=== PATIENT | male | born 1960 | race Caucasian/White ===

== ENCOUNTER 2016-10-15 12:21 | Day surgery (SDC) | payer OTHER ==
[~2016-10-15] VITALS: Ht 175.3 cm; Wt 106.6 kg
[~2016-10-15 12:21] MED LIST: ALLOPURINOL300 MG PO; AMLODIPINE BESYL5 MG PO; AUGMENTIN875 MG PO; BREO ELLIPTA I1 EACH IH; LIPITOR40 MG PO; METFORMIN HCL500 MG PO; NEURONTIN100 MG PO; OMEPRAZOLE20 M2 PO; PRAVASTATIN SOD40 MG PO; SINGULAIR10 MG PO; TOPROL XL50 MG PO; TRAMADOL HCL50 MG PO; VALSARTAN-HCTZ1 EAC3 PO; VITAMIN B-2100 MG PO; ZYLOPRIM300 MG PO
[2016-10-15 13:13] LABS: POINT-OF-CARE METER ID UU14174212
[2016-10-15 13:43] VITALS: BP 140/80
== END 2016-10-15 13:58 | disposition home or self-care (01) ==
LOC: SDC 12:21
PROVIDERS: Orthopaedic Surgery Hand Surgery
DX: S46.211A Strain of muscle, fascia and tendon of other parts of biceps, right arm, initial encounter (principal); Z53.9 Procedure and treatment not carried out, unspecified reason; M25.531 Pain in right wrist; G56.01 Carpal tunnel syndrome, right upper limb; J45.909 Unspecified asthma, uncomplicated; I10 Essential (primary) hypertension; E11.9 Type 2 diabetes mellitus without complications; Z79.84 Long term (current) use of oral hypoglycemic drugs
CPT/HCPCS: 82948

== ENCOUNTER 2017-05-29 18:00 | Emergency (ER) | payer OTHER ==
[~2017-05-29] VITALS: Ht 175.3 cm; Wt 114.3 kg
[2017-05-29] MEDS ORDERED: AUGMENTIN875 MG PO (21:55)
[2017-05-29 22:47] VITALS: BP 144/84
== END 2017-05-29 22:48 | disposition home or self-care (01) ==
LOC: EME 18:00
DX: S60.512A Abrasion of left hand, initial encounter (principal); S60.511A Abrasion of right hand, initial encounter; L03.114 Cellulitis of left upper limb; W55.01XA Bitten by cat, initial encounter; Z23 Encounter for immunization; Z20.3 Contact with and (suspected) exposure to rabies; Z29.14 Encounter for prophylactic rabies immune globulin; Z88.6 Allergy status to analgesic agent
CPT/HCPCS: 73130; 99281; 99284

== ENCOUNTER 2017-06-05 17:12 | Emergency (ER) | payer OTHER ==
[~2017-06-05] VITALS: Ht 175.3 cm; Wt 115.2 kg
[2017-06-05 19:01] VITALS: BP 152/93
== END 2017-06-05 19:01 | disposition home or self-care (01) ==
LOC: EME 17:12
PROC: 3E0234Z Introduction of Serum, Toxoid and Vaccine into Muscle, Percutaneous Approach (ICD-10-PCS; principal; 2017-06-05)
DX: Z20.3 Contact with and (suspected) exposure to rabies (principal); Z23 Encounter for immunization
CPT/HCPCS: 99281; 99283

== ENCOUNTER 2017-06-12 17:34 | Emergency (ER) | payer OTHER ==
[~2017-06-12] VITALS: Ht 175.3 cm; Wt 116.0 kg
[2017-06-12 17:52] VITALS: BP 172/109
== END 2017-06-12 18:42 | disposition home or self-care (01) ==
LOC: EME 17:34
PROC: 3E0234Z Introduction of Serum, Toxoid and Vaccine into Muscle, Percutaneous Approach (ICD-10-PCS; principal; 2017-06-12)
DX: Z23 Encounter for immunization (principal); S60.511D Abrasion of right hand, subsequent encounter; S60.512D Abrasion of left hand, subsequent encounter; W55.01XD Bitten by cat, subsequent encounter; W55.03XD Scratched by cat, subsequent encounter; I10 Essential (primary) hypertension; E11.9 Type 2 diabetes mellitus without complications; Z79.84 Long term (current) use of oral hypoglycemic drugs
CPT/HCPCS: 99281; 99284